=== PATIENT | male | born 1990 | race Caucasian/White ===

== ENCOUNTER 2016-08-25 20:55 | Emergency (ER) | payer BC, OTHER ==
[~2016-08-25] VITALS: Ht 162.6 cm; Wt 73.5 kg
[~2016-08-25 20:55] MED LIST: ASP81 PO; CARV6.2579 PO; FOLI0.8T2 PO; LISI-313 PO; SEVE800T10 PO
[2016-08-25 20:57] VITALS: Ht 162.6 cm; Wt 73.5 kg
[2016-08-25] MEDS ORDERED: NITROGLYCERIN 2% 1 GM OINT PKT TD STA (21:46)
[2016-08-25] MEDS ORDERED: ASPIRIN 81 MG TAB PO STA (21:46)
[2016-08-25] MEDS ORDERED: NITROGLYCERIN (SL) 0.4 MG TAB SL PRN (22:00)
[2016-08-25] MEDS ORDERED: morphine 4 MG/ML VIAL IV STA (22:12)
[2016-08-25] MEDS ORDERED: ONDANSETRON 4 MG INJ IV STA (22:12)
[2016-08-25 22:27] LABS: BASOPHIL # 0.1 10^3/ul (0.0-0.1); BASOPHILS % 0.6 % (0.0-2.0); EOSINOPHILS # 0.3 10^3/ul (0.0-0.5); EOSINOPHILS % 2.8 % (0.0-7.0); INR 0.98; LYMPHOCYTES # 1.7 10^3/ul (0.8-2.9); LYMPHOCYTES % 16.5 % (15.0-51.0); MEAN CORPUSCULAR HEMOGLOBIN 33.4 pg (29.0-33.0); MEAN CORPUSCULAR HGB CONC 33.4 g/dl (32.0-37.0); MEAN CORPUSCULAR VOLUME 100.1 fl (82.0-101.0); MEAN PLATELET VOLUME 10.9 fl (7.4-10.4); MONOCYTE # 0.5 10^3/ul (0.3-0.9); MONOCYTES % 5.2 % (0.0-11.0); NEUTROPHIL # 7.5 10^3/ul (1.6-7.5); NEUTROPHILS % 74.9 % (39.0-77.0); PLATELET COUNT 190 10^3/UL (140-440); POTASSIUM 3.8 mmol/L (3.5-5.1); RED BLOOD COUNT 3.59 10^6/ul (4.70-6.10); RED CELL DISTRIBUTION WIDTH 16.2 % (11.5-14.5)
[2016-08-25 22:28] LABS: PARTIAL THROMBOPLASTIN TIME 29.8 Sec (25.0-35.0)
[2016-08-25 22:29] LABS: CREATININE 12.16 mg/dl (0.61-1.24)
[2016-08-25 22:30] LABS: CALCIUM 10.2 mg/dl (8.4-10.2)
[2016-08-25 22:32] LABS: CONDITION 1; LH ANALYZER COMMENTS 1
[2016-08-25 22:42] LABS: TROPONIN-I 0.015 ng/ml (0.00-0.12)
--- NOTE | 2016-08-25 22:54 | RADRPT ---
PROCEDURE: XR Chest. CLINICAL INDICATION: Chest pain. TECHNIQUE: AP Portable chest. COMPARISON: 06/17/2016 FINDINGS: There is moderate cardiomegaly. The lungs are clear. The osseous structures are unremarkable. IMPRESSION: No acute findings. RPTAT: HIKT .Juan Bruno MD, Date Time Electronically viewed and signed by .Juan Bruno MD, on 08/25/2016 22:53 .T/
[2016-08-25] MEDS ORDERED: HYDR-902 PO (23:30)
--- NOTE | 2016-08-25 23:32 | ERD ---
ER Documentation Chief Complaint Date/Time DATE: 08/25/16 TIME: 23:32 Chief Complaint MIDSTERNAL CP X2 DAY/COUGHING BLOOD X1 MONTH ROS All systems reviewed and are negative except as per history of present illness. Medications Home Meds Active Scripts Hydrocodone/Acetaminophen ([place] 10-325 Tablet) 1 Each Tablet, 1 TAB PO Q6H Y for PAIN, #7 TAB Prov:JAIME NIEVES MD 08/25/16 Aspirin (Aspirin) 81 Mg Chew, 81 MG PO DAILY for 30 Days, TAB Prov:MEDINAZEKEA V. COMMUNITY ENGAGEMENT COORDINATOR 06/20/16 Lisinopril* (Lisinopril*) 5 Mg Tablet, 5 MG PO DAILY for 30 Days, TAB Prov:MEDINAMEGAN V. COMMUNITY ENGAGEMENT COORDINATOR 06/20/16 Carvedilol* (Carvedilol*) 6.25 Mg Tablet, 6.25 MG PO BID for 30 Days, TAB Prov:MEDINAMEGAN V. COMMUNITY ENGAGEMENT COORDINATOR 06/20/16 Reported Medications Sevelamer Hcl* (Renagel*) 800 Mg Tablet, 800 MG PO WITH MEALS, TAB 06/17/16 Folic Acid/Vitamin B Comp W-C (Renal Multivitamin Tablet) 0.8 Mg Tablet, 0.8 MG PO DAILY, TAB 06/17/16 Allergies Allergies: Coded Allergies: No Known Allergy (Unverified , 06/17/16) PER PT AND TX PAPERS FROM [facility] PMhx/Soc History of Surgery: Yes (AVF INSERTION LEFT ARM) Anesthesia Reaction: No Hx Neurological Disorder: No Hx Respiratory Disorders: No Hx Cardiac Disorders: Yes (ACS,HTN,CARDIOMYOPATHY) Hx Psychiatric Problems: No Hx Miscellaneous Medical Probl: No Hx Alcohol Use: No Hx Substance Use: No Hx Tobacco Use: No Smoking Status: Never smoker Physical Exam Vitals Vital Signs Date Time Temp Pulse Resp B/P Pulse Ox O2 Delivery O2 Flow Rate FiO2 08/25/16 20:57 97.3 110 24 191/137 100 Physical Exam Const: [] Head: Atraumatic Eyes: Normal Conjunctiva ENT: Normal External Ears, Nose and Mouth. Neck: Full range of motion..~ No meningismus. Resp: Clear to auscultation bilaterally Cardio: Regular rate and rhythm, no murmurs Abd: Soft, non tender, non distended. Normal bowel sounds Skin: No petechiae or rashes Back: No midline or flank tenderness Ext: No cyanosis, or edema Neur: Awake and alert Psych: Normal Mood and Affect Result Diagram: 08/25/16214708/25/162147 Results 24 hrs Laboratory Tests Test 08/25/16 21:48 Activated Partial Thromboplast Time 29.8Sec Anion Gap 21 Basophils # 0.110^3/ul Basophils % 0.6% Blood Morphology Comment Blood Urea Nitrogen 43mg/dl Calcium Level 10.2mg/dl Carbon Dioxide Level 29mmol/L Chloride Level 98mmol/L Creatinine 12.16mg/dl Eosinophils # 0.310^3/ul Eosinophils % 2.8% Glucose Level 86mg/dl Hematocrit 36.0% Hemoglobin 12.0g/dl INR International Normalized Ratio 0.98 Lymphocytes # 1.710^3/ul Lymphocytes % 16.5% Mean Corpuscular Hemoglobin 33.4pg Mean Corpuscular Hemoglobin Concent 33.4g/dl Mean Corpuscular Volume 100.1fl Mean Platelet Volume 10.9fl Monocytes # 0.510^3/ul Monocytes % 5.2% Neutrophils # 7.510^3/ul Neutrophils % 74.9% Nucleated Red Blood Cells # 0.010^3/ul Nucleated Red Blood Cells % 0.0/100WBC Platelet Count 96739^3/UL Potassium Level 3.8mmol/L Prothrombin Time 13.0Sec Prothrombin Time Ratio 1.0 Red Blood Count 3.5910^6/ul Red Cell Distribution Width 16.2% Sodium Level 144mmol/L Troponin I 0.015ng/ml White Blood Count 10.010^3/ul Current Medications Medications (Trade) Dose Ordered Sig/Aubrey Route PRN Reason Start Time Stop Time Status Last Admin Dose Admin Aspirin (Aspirin) 162 mg ONCE STAT PO 08/25/16 21:46 08/25/16 21:48 DC 08/25/16 22:01 Nitroglycerin (Nitroglycerin 2% Oint) 1 inch ONCE STAT TD 08/25/16 21:46 08/25/16 21:48 DC 08/25/16 22:01 Nitroglycerin (Nitroglycerin (Sl Tab) 0.4 Mg) 1 tab Q5M UP TO 3 DOSES PRN SL CHEST PAIN 08/25/16 22:00 08/25/16 22:01 Morphine Sulfate (morphine) 4 mg ONCE STAT IV 08/25/16 22:12 08/25/16 22:13 DC 08/25/16 22:18 Ondansetron HCl (Zofran Inj) 4 mg ONCE STAT IV 08/25/16 22:12 08/25/16 22:13 DC 08/25/16 22:18 Procedures/MDM EKG read by me: Rate/Rhythm: Sinus tachycardia rate of 103 Intervals: Normal Impression: Sinus tachycardia at a rate of 103 with PVCs but no signs of ST elevations or depressions Departure Diagnosis: Primary Impression: Chest pain Chest pain type: unspecified Qualified Code: R07.9 - Chest pain, unspecified type Condition: Fair Patient Instructions: Chest Pain, Uncertain Cause Referrals: [facility] Usted se dan hecho un examen mdico de control que le indica que no est en yaz condicin que requiera tratamiento urgente en el Departamento de Emergencia. Un estudio ms profundo y el tratamiento de perez condicin pueden esperar sin ningn riesgo hasta que usted sea atendida/o en el consultorio de perez mdico o yaz cl nazanin. Es responsabilidad suya arreglar yaz tyler para el seguimiento del thiago. MANEJO DE CONDICIONES NO URGENTES EN EL FUTURO 1) Si usted tiene un mdico de atencin primaria: Usted debera llamar a perez mdico de atencin primaria antes de venir al departamento de emergencia. Despus de las horas de consultorio, perez doctor o perez asociado/a est disponible por telfono. El mdico o enfermero de josh en el servicio telefnico puede asesorarle por gin medio para atender el problema, o thiago contrario se puede programar yaz tyler. 2) Si usted no tiene un mdico de atencin primaria: Llame al mdico o clnica de referencia que aparece abajo tasia las horas de consultorio para hacer yaz tyler para que le vean. CLINICAS: [facility] [phone] [facility] [phone] [facility] [phone] [place] [phone] [place] [address] [phone] [place] [id number] [phone] Additional Instructions: Visite a ana larose para un EXAMEN.Regrese a estas instalaciones si no se mejora izabela esperbamos o izabela le monets. JAIME NIEVES MD Aug 25, 2016 23:32
[2016-08-25 23:41] VITALS: BP 161/110; PULSE 95; RESP 17
== END 2016-08-25 23:41 | disposition home or self-care (01) ==
LOC: E/R 20:55
DX: R07.9 Chest pain, unspecified (principal); I12.0 Hypertensive chronic kidney disease with stage 5 chronic kidney disease or end stage renal disease; N18.6 End stage renal disease; Z79.82 Long term (current) use of aspirin
CPT/HCPCS: 36415; 71010; 80048; 84484; 85025; 85610; 85730; 93005; 96374; 96375; 99285; J2270; J2405; Z7610

== ENCOUNTER 2016-10-19 20:44 | Emergency (ER) | payer BC ==
[~2016-10-19] VITALS: Ht 162.6 cm; Wt 70.3 kg
[~2016-10-19 20:44] MED LIST changes: -ASP81 PO; +ASPI81TA3 PO; +HYDR-902 PO
[2016-10-19 20:51] VITALS: Ht 162.6 cm; Wt 70.3 kg
[2016-10-19 23:40] LABS: ADD SCAN DIFF NO
[2016-10-19 23:42] LABS: BASOPHIL # 0.1 10^3/ul (0.0-0.1); BASOPHILS % 1.1 % (0.0-2.0); EOSINOPHILS # 0.2 10^3/ul (0.0-0.5); EOSINOPHILS % 2.8 % (0.0-7.0); HEMATOCRIT 35.9 % (42.0-52.0); HEMOGLOBIN 11.7 g/dl (14.0-18.0); LYMPHOCYTES # 1.5 10^3/ul (0.8-2.9); LYMPHOCYTES % 22.5 % (15.0-51.0); MEAN CORPUSCULAR HEMOGLOBIN 32.4 pg (29.0-33.0); MEAN CORPUSCULAR HGB CONC 32.6 g/dl (32.0-37.0); MEAN CORPUSCULAR VOLUME 99.4 fl (82.0-101.0); MEAN PLATELET VOLUME 12.5 fl (7.4-10.4); MONOCYTE # 0.6 10^3/ul (0.3-0.9); MONOCYTES % 8.9 % (0.0-11.0); NEUTROPHIL # 4.2 10^3/ul (1.6-7.5); NEUTROPHILS % 64.5 % (39.0-77.0); PLATELET COUNT 137 10^3/UL (140-415); RED BLOOD COUNT 3.61 10^6/ul (4.70-6.10); RED CELL DISTRIBUTION WIDTH 13.2 % (11.5-14.5); WHITE BLOOD COUNT 6.5 10^3/ul (4.8-10.8)
[2016-10-19 23:55] LABS: ALBUMIN 3.8 g/dl (3.3-4.9)
[2016-10-19 23:58] LABS: ALBUMIN/GLOBULIN RATIO 1.46; BILIRUBIN,INDIRECT 0.2 mg/dl (0-1.1); BILIRUBIN,TOTAL 0.2 mg/dl (0.2-1.3); CREATININE 9.72 mg/dl (0.61-1.24); TOTAL PROTEIN 6.4 g/dl (6.1-8.1)
[2016-10-19 23:59] LABS: CALCIUM 9.4 mg/dl (8.4-10.2)
[2016-10-20] MEDS ORDERED: ONDANSETRON 4 MG INJ IV STA (00:06)
[2016-10-20] MEDS ORDERED: morphine 4 MG/ML VIAL IV STA (00:06)
--- NOTE | 2016-10-20 00:51 | RADRPT ---
PROCEDURE: CHEST - 1 VIEW CLINICAL INDICATION: 26-year-old male with chest pain. TECHNIQUE: A single frontal AP view of the chest was performed portably. The images were reviewed on a PACS workstation. COMPARISON: Chest x-ray August 25, 2016; June 17, 2016; CTA chest June 17, 2016. FINDINGS: The cardiomediastinal silhouette is enlarged but without significant interval change compared to the patient's most recent study from August 31, 2016. There is mild pulmonary vascular congestion. The re is right lower lung zone subsegmental atelectasis. There is no evidence for pneumothorax or pneu momediastinum. The osseous structures are intact. IMPRESSION: 1. Cardiomegaly. 2. Pulmonary vascular congestion. 3. Right lower lung zone subsegmental atelectasis. .Kain Baum MD, MD Date Time Electronically viewed and signed by .Kain Baum MD, MD on 10/20/2016 00:51 .M/
[2016-10-20] MEDS ORDERED: ACET500C5 PO (01:08)
[2016-10-20 01:09] VITALS: BP 149/91; PULSE 71; RESP 16
--- NOTE | 2016-10-20 01:22 | ERD ---
ER Documentation Chief Complaint Date/Time DATE: 10/20/16 TIME: 01:11 Chief Complaint mid epigastric pain with diarrhea for past 5 days, with blood in stool HPI 18-year-old male complaining of epigastric abdominal pain 3 days. Patient also reports diarrhea 5 days with about 3 episode of diarrhea per day. Described the pain as constant, pressure-like, radiates to the mid back. The pain is worse when he is walking. He has shortness breath. Patient reports nausea but no vomiting. Denies fever. Denies cough or runny nose. 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 ROS All systems reviewed and are negative except as per history of present illness. Medications Home Meds Active Scripts Acetaminophen* (Tylophen*) 500 Mg Capsule, 1 CAP PO Q6H Y for PAIN AND OR ELEVATED TEMP, #20 CAP Prov:SADIQ PEARCE BREW HOUSE SUPERVISOR 10/20/16 Hydrocodone/Acetaminophen ([place] 10-325 Tablet) 1 Each Tablet, 1 TAB PO Q6H Y for PAIN, #7 TAB Prov:JAIME NIEVES MD 08/25/16 Aspirin (Aspirin) 81 Mg Chew, 81 MG PO DAILY for 30 Days, TAB Prov:MEGAN MEDINA V. BREW HOUSE SUPERVISOR 06/20/16 Lisinopril* (Lisinopril*) 5 Mg Tablet, 5 MG PO DAILY for 30 Days, TAB Prov:MEGAN MEDINA V. BREW HOUSE SUPERVISOR 06/20/16 Carvedilol* (Carvedilol*) 6.25 Mg Tablet, 6.25 MG PO BID for 30 Days, TAB Prov:MEGAN MEDINA NP 06/20/16 Reported Medications Sevelamer Hcl* (Renagel*) 800 Mg Tablet, 800 MG PO WITH MEALS, TAB 06/17/16 Folic Acid/Vitamin B Comp W-C (Renal Multivitamin Tablet) 0.8 Mg Tablet, 0.8 MG PO DAILY, TAB 06/17/16 Allergies Allergies: Coded Allergies: No Known Allergy (Unverified , 06/17/16) PER PT AND TX PAPERS FROM [facility] PMhx/Soc History of Surgery: Yes (AVF INSERTION LEFT ARM) Anesthesia Reaction: No Hx Neurological Disorder: No Hx Respiratory Disorders: No Hx Cardiac Disorders: Yes (ACS,HTN,CARDIOMYOPATHY) Hx Psychiatric Problems: No Hx Miscellaneous Medical Probl: Yes (KIDNEY FAILURE; DIALYSIS) Hx Alcohol Use: No Hx Substance Use: No Hx Tobacco Use: No Smoking Status: Never smoker Physical Exam Vitals Vital Signs Date Time Temp Pulse Resp B/P Pulse Ox O2 Delivery O2 Flow Rate FiO2 10/20/16 01:09 71 16 149/91 99 Room Air 10/19/16 20:51 97.8 83 22 164/107 100 Physical Exam General impression: Well-developed, well-nourished. Alert, oriented, in no acute distress Head: Normocephalic, atraumatic. Respiration: Normal respiratory effort. Lungs clear to auscultate bilaterally. No wheezes, rales or rhonchi. Cardiovascular: Regular rate and rhythm. No murmurs or extra heart sounds. Abdomen: Abdomen normal to inspection. Epigastric and right lower quadrant tenderness. Rebound tenderness at the right lower quadrant. No masses or organomegaly. Bowel sounds normal. Back: Normal to inspection. No midline spine tenderness. No CVA tenderness. Neuro: Mental status normal, speech normal. BUCKLE SEWER grossly intact. Skin: Normal turgor. No rash or lesions. Psych: Normal mood and affect. Result Diagram: 10/19/16231910/19/162319 Results 24 hrs Laboratory Tests Test 10/19/16 23:20 Alanine Aminotransferase (ALT/SGPT) 46IU/L Albumin 3.8g/dl Albumin/Globulin Ratio 1.46 Alkaline Phosphatase 97IU/L Anion Gap 19 Aspartate Amino Transf (AST/SGOT) 29IU/L Basophils # 0.110^3/ul Basophils % 1.1% Blood Urea Nitrogen 38mg/dl Calcium Level 9.4mg/dl Carbon Dioxide Level 32mmol/L Chloride Level 94mmol/L Creatinine 9.72mg/dl Direct Bilirubin 0.00mg/dl Eosinophils # 0.210^3/ul Eosinophils % 2.8% Globulin 2.60g/dl Glucose Level 90mg/dl Hematocrit 35.9% Hemoglobin 11.7g/dl Indirect Bilirubin 0.2mg/dl Lipase 70U/L Lymphocytes # 1.510^3/ul Lymphocytes % 22.5% Mean Corpuscular Hemoglobin 32.4pg Mean Corpuscular Hemoglobin Concent 32.6g/dl Mean Corpuscular Volume 99.4fl Mean Platelet Volume 12.5fl Monocytes # 0.610^3/ul Monocytes % 8.9% Neutrophils # 4.210^3/ul Neutrophils % 64.5% Nucleated Red Blood Cells # 0.010^3/ul Nucleated Red Blood Cells % 0.0/100WBC Platelet Count 03771^3/UL Potassium Level 4.0mmol/L Red Blood Count 3.6110^6/ul Red Cell Distribution Width 13.2% Sodium Level 141mmol/L Total Bilirubin 0.2mg/dl Total Protein 6.4g/dl Troponin I 0.028ng/ml White Blood Count 6.510^3/ul Current Medications Medications (Trade) Dose Ordered Sig/Aubrey Route PRN Reason Start Time Stop Time Status Last Admin Dose Admin Morphine Sulfate (morphine) 4 mg ONCE STAT IV 10/20/16 00:06 10/20/16 00:08 DC 10/20/16 00:30 Ondansetron HCl (Zofran Inj) 4 mg ONCE STAT IV 10/20/16 00:06 10/20/16 00:08 DC 10/20/16 00:30 PROCEDURE: CHEST - 1 VIEW CLINICAL INDICATION: 26-year-old male with chest pain. TECHNIQUE: A single frontal AP view of the chest was performed portably. The images were reviewed on a PACS workstation. COMPARISON: Chest x-ray August 25, 2016; June 17, 2016; CTA chest June 17, 2016. FINDINGS: The cardiomediastinal silhouette is enlarged but without significant interval change compared to the patient's most recent study from August 31, 2016. There is mild pulmonary vascular congestion. There is right lower lung zone subsegmental atelectasis. There is no evidence for pneumothorax or pneumomediastinum. The osseous structures are intact. IMPRESSION: 1. Cardiomegaly. 2. Pulmonary vascular congestion. 3. Right lower lung zone subsegmental atelectasis. .Kain Baum MD, Date Time Electronically viewed and signed by .Kain Baum MD, MD on 10/20/2016 00:51 .M/ CC: SADIQ PEARCE. BREW HOUSE SUPERVISOR Procedures/MDM Well-appearing 26-year-old male presents to ED was abdominal pain 3 days. Patient has epigastric and right lower quadrant tenderness on exam, with right lower quadrant rebound tenderness. Patient has history of end-stage renal disease, reviewed of the medical records also revealed history of congestive heart failure. EKG: Sinus rhythm, left axis. Left atrial enlargement and left ventricular hypertrophy. No ST segment elevation or depression. Frequent PVC and QT prolongation noted. No leukocytosis noted WBC. Elevated BUN and creatinine is noted CMP, otherwise unremarkable. Lipase is negative, troponin is also negative. Chest x-ray showed cardiomegaly, pulmonary vascular congestion, and right lower lung zone subsegmental atelectasis. I reviewed patient case with Dr. Dunn, who agrees that patient does not have any acute condition that requires emergent treatment. Low suspicion for acute appendicitis, cholecystitis, pancreatitis, hepatitis, bowel obstruction, or other acute abdomen. Low suspicion for HI or aortic dissection. Patient may be discharged home with cardiology follow-up. Patient stated that he has not seen a top distribution executive, but has a cardiology referral set up. The appointment is next week. Patient advised to follow-up with her top distribution executive as scheduled. Patient appears well, stable for discharge and outpatient management. Medical decision making shared with patient and family. Education provided to patient and family. Patient and family expressed understanding of the plan. Medications on discharge: Tylenol. Follow-up: Primary care provider in 2-3 days or return to ED if worse. Departure Diagnosis: Primary Impression: Abdominal pain Abdominal location: epigastric Qualified Code: R10.13 - Epigastric pain Condition: Stable Patient Instructions: Abdominal Pain Referrals: DOCTOR,NOT ON STAFF (PCP) [facility] YOU HAVE RECEIVED A MEDICAL SCREENING EXAM AND THE RESULTS INDICATE THAT YOU DO NOT HAVE A CONDITION THAT REQUIRES URGENT TREATMENT IN THE EMERGENCY DEPARTMENT. FURTHER EVALUATION AND TREATMENT OF YOUR CONDITION CAN WAIT UNTIL YOU ARE SEEN IN YOUR DOCTORS OFFICE WITHIN THE NEXT 1-2 DAYS. IT IS YOUR RESPONSIBILITY TO MAKE AN APPOINTMENT FOR FOLOW-UP CARE. IF YOU HAVE A PRIMARY DOCTOR --you should call your primary doctor and schedule an appointment IF YOU DO NOT HAVE A PRIMARY DOCTOR YOU CAN CALL OUR PHYSICIAN REFERRAL HOTLINE AT IF YOU CAN NOT AFFORD TO SEE A PHYSICIAN YOU CAN CHOSE FROM THE FOLLOWING COMMUNITY CLINICS [facility] [address] [facility] [address] [facility] [address] [facility] [address] [facility] [place] [address] [facility]. [facility] [address] Additional Instructions: Call your primary care doctor TOMORROW for an appointment during the next 2-3 days.See the doctor sooner or return here if your condition worsens before your appointment time. SADIQ PEARCE NP Oct 20, 2016 01:22
== END 2016-10-20 01:18 | disposition home or self-care (01) ==
LOC: FTE 20:44
DX: R10.13 Epigastric pain (principal); R11.0 Nausea; I12.0 Hypertensive chronic kidney disease with stage 5 chronic kidney disease or end stage renal disease; N18.6 End stage renal disease; Z79.82 Long term (current) use of aspirin; Z99.2 Dependence on renal dialysis
CPT/HCPCS: 36415; 71010; 80053; 83690; 84484; 85025; 96374; 96375; 99285; J2270; J2405; 93005